=== PATIENT | male | born 1980 | race Caucasian/White ===

== ENCOUNTER 2022-11-04 19:31 | Inpatient (IN) | payer MEDICAID, OTHER ==
[~2022-11-04] VITALS: Ht 182.9 cm; Wt 78.5 kg
[2022-11-04] MEDS ORDERED: DiphenhydrAMINE HCL 50 MG/ML VIAL IM ONE (21:15)
[2022-11-04] MEDS ORDERED: HALOPERIDOL LACTATE 5 MG/ML VIAL IM ONE (21:15)
[2022-11-04] MEDS ORDERED: LORazepam 2 MG/ML VIAL IM ONE (21:15)
[2022-11-04] MEDS ORDERED: HALOPERIDOL 5 MG TABLET PO PRN (21:30)
[2022-11-04 21:49] LABS: BASOPHILS % (AUTO) 0.1 % (0.0-2.0); EOSINOPHILS % (AUTO) 0 % (1.0-6.0); HEMOGLOBIN 13.6 g/dL (13.5-17.5); LYMPHOCYTES # (AUTO) 0.8 K/uL (1.0-4.8); LYMPHOCYTES % (AUTO) 9.1 % (22.0-44.0); MEAN CORPUSCULAR HEMOGLOBIN 27.3 pg (26.0-34.0); MEAN CORPUSCULAR HGB CONC 33.1 G/dL (31.0-37.0); MEAN CORPUSCULAR VOLUME 82 fL (80-100); MONOCYTES # (AUTO) 0.3 K/uL (0.1-1.0); MONOCYTES % (AUTO) 3.7 % (2.0-9.0); NEUTROPHILS # (AUTO) 7.3 K/uL (1.8-7.7); PLATELET COUNT (AUTO) 171 K/uL (150-450); RED BLOOD CELL COUNT(AUTO) 4.98 MIL/uL (4.50-5.90); RED CELL DISTRIBUTION WIDTH 13.3 % (11.5-14.5)
[2022-11-04 21:50] LABS: NEUTROPHILS % (AUTO) 87.1 % (40.0-70.0)
[2022-11-04 21:51] LABS: COVID AG,FIA SOURCE NASOPHARYNGEAL
[2022-11-04 21:57] LABS: ANION GAP 8 mmol/L (8-16); CALCIUM, TOTAL 9.7 mg/dL (8.8-10.5); CARBON DIOXIDE 27 mmol/L (22-29); CHLORIDE 102 mmol/L (98-107); CREATININE 0.79 mg/dL (0.60-1.30); GLOMERULAR FILTR. RATE CALC > 60 mL/min (>60); GLUCOSE,RANDOM 119 mg/dL (70-110); POTASSIUM 3.9 mmol/L (3.5-5.1); SODIUM SERUM 137 mmol/L (136-145); UREA NITROGEN, BLOOD 15 mg/dL (7-18)
[2022-11-04 22:02] LABS: ALANINE AMINOTRANSFERASE 29 U/L (12-78); ALBUMIN 4.3 g/dL (3.4-5.0); ALKALINE PHOSPHATASE 55 U/L (46-116); ASPARTATE AMINOTRANSFERASE 23 U/L (15-37); BILIRUBIN,TOTAL 0.4 mg/dL (0.1-1.0); TOTAL PROTEIN, SERUM 7.8 g/dL (6.4-8.2)
[2022-11-04 23:34] LABS: APPEARANCE,URINE CLEAR (CLEAR); BILIRUBIN,URINE NEGATIVE (NEGATIVE); GLUCOSE, URINE (UA) NEGATIVE (NEGATIVE); KETONES,URINE NEGATIVE (NEGATIVE); LEUKOCYTE ESTERASE ,URINE NEGATIVE (NEGATIVE); NITRATE,URINE NEGATIVE (NEGATIVE); OCCULT BLOOD,URINE NEGATIVE (NEGATIVE); PH,URINE 6.5 (5.0-8.0); PROTEIN,URINE NEGATIVE (NEGATIVE); SPECIFIC GRAVITIY, URINE 1.011 (1.003-1.030); UROBILINOGEN,URINE <=1.0 mg/dL (<=1.0)
[2022-11-04 23:39] LABS: AMPHET/METH SCREEN,URINE POSITIVE (NEGATIVE); BARBITURATE SCREEN, URINE NEGATIVE (NEGATIVE); BENZODIAZEPINES SCREEN,URINE NEGATIVE (NEGATIVE); CANNABINOID SCREEN,URINE POSITIVE (NEGATIVE); COCAINE SCREEN,URINE NEGATIVE (NEGATIVE); METHADONE SCREEN, URINE NEGATIVE (NEGATIVE); OPIATE SCREEN,URINE NEGATIVE (NEGATIVE); PHENCYCLIDINE SCREEN,URINE NEGATIVE (NEGATIVE)
[2022-11-05 00:01] VITALS: BP 132/71
[2022-11-05] MEDS ORDERED: INFLUENZA VIRUS VACCINE QVS 2022-23 (6MO+)/PF 60 MCG/0.5 ML SYRINGE IM. ONE (00:15)
[2022-11-05] MEDS ORDERED: MAG HYDROX/AL HYDROX/SIMETH ES 30 ML SUSPENSION UDCUP PO PRN (01:30)
[2022-11-05] MEDS ORDERED: LOPERAMIDE HCL 2 MG CAPSULE PO PRN (01:30)
[2022-11-05] MEDS ORDERED: ONDANSETRON HCL 4 MG TABLET PO PRN (01:30)
[2022-11-05] MEDS ORDERED: MAGNESIUM HYDROXIDE SUSPENSION 30 ML UDCUP PO PRN (01:30)
[2022-11-05] MEDS ORDERED: CloNIDine HCL 0.1 MG TABLET PO PRN (01:30)
[2022-11-05] MEDS ORDERED: ALBUTEROL SULFATE HFA 90 MCG/PUFF 8 GM INHALER IH PRN (01:30)
[2022-11-05] MEDS ORDERED: ACETAMINOPHEN 325 MG TABLET PO PRN (01:30)
[2022-11-05] MEDS ORDERED: IBUPROFEN 400 MG TABLET PO PRN (01:30)
[2022-11-05] MEDS ORDERED: DOCUSATE SODIUM 100 MG CAPSULE PO PRN (01:30)
[2022-11-05] MEDS ORDERED: GuaiFENesin/D-METHORPHAN [SUGAR-FREE] 200-20MG/10 ML SYRUP UDCUP PO PRN (01:30)
[2022-11-05] MEDS ORDERED: PETROLATUM,WHITE 28 GM JELLY TP PRN (01:30)
[2022-11-05] MEDS ORDERED: NICOTINE 14 MG/24 HOUR PATCH TD PRN (01:30)
[2022-11-05 09:05] VITALS: BP 146/92
[2022-11-05 09:07] LABS: ANION GAP 7 mmol/L (8-16); CALCIUM, TOTAL 9.6 mg/dL (8.8-10.5); CARBON DIOXIDE 28 mmol/L (22-29); CHLORIDE 104 mmol/L (98-107); GLOMERULAR FILTR. RATE CALC > 60 mL/min (>60); GLUCOSE,RANDOM 123 mg/dL (70-110); POTASSIUM 3.9 mmol/L (3.5-5.1); SODIUM SERUM 139 mmol/L (136-145); UREA NITROGEN, BLOOD 14 mg/dL (7-18)
[2022-11-05] MEDS: LORazepam 2 MG TABLET PO PRN (11:51)
[2022-11-05] MEDS: OLANZapine 5 MG RAPDIS TABLET PO SCH ×2 (11:51→20:47)
[2022-11-05 20:30] VITALS: BP 139/91
[2022-11-05] MEDS: ZOLPIDEM TARTRATE 10 MG TABLET PO PRN (20:47)
[2022-11-06 08:00] VITALS: BP 143/91
[2022-11-06] MEDS: OLANZapine 5 MG RAPDIS TABLET PO SCH ×2 (09:22→20:17)
[2022-11-06 11:04] LABS: BASOPHILS % (AUTO) 0.1 % (0.0-2.0); EOSINOPHILS % (AUTO) 0.1 % (1.0-6.0); HEMATOCRIT 43.9 % (41-53); HEMOGLOBIN 14.7 g/dL (13.5-17.5); LYMPHOCYTES % (AUTO) 8.5 % (22.0-44.0); MEAN CORPUSCULAR HEMOGLOBIN 27.2 pg (26.0-34.0); MEAN CORPUSCULAR HGB CONC 33.4 G/dL (31.0-37.0); MEAN CORPUSCULAR VOLUME 82 fL (80-100); MONOCYTES # (AUTO) 0.8 K/uL (0.1-1.0); MONOCYTES % (AUTO) 6.4 % (2.0-9.0); NEUTROPHILS % (AUTO) 84.9 % (40.0-70.0); PLATELET COUNT (AUTO) 194 K/uL (150-450); RED BLOOD CELL COUNT(AUTO) 5.38 MIL/uL (4.50-5.90); RED CELL DISTRIBUTION WIDTH 13.3 % (11.5-14.5)
[2022-11-06 11:23] LABS: HEMOGLOBIN A1C 5.2 % (3.8-5.6)
[2022-11-06 11:59] LABS: ALANINE AMINOTRANSFERASE 26 U/L (12-78); ALKALINE PHOSPHATASE 55 U/L (46-116); ANION GAP 12 mmol/L (8-16); ASPARTATE AMINOTRANSFERASE 18 U/L (15-37); BILIRUBIN,TOTAL 0.3 mg/dL (0.1-1.0); CALCIUM, TOTAL 9.3 mg/dL (8.8-10.5); CARBON DIOXIDE 23 mmol/L (22-29); CHLORIDE 101 mmol/L (98-107); CHOL/HDL RATIO 2.8 (4.2-7.3); CHOLESTEROL 193 mg/dL (131-200); CREATININE 0.86 mg/dL (0.60-1.30); GLOMERULAR FILTR. RATE CALC > 60 mL/min (>60); GLUCOSE,RANDOM 144 mg/dL (70-110); HDL CHOLESTEROL 68 mg/dL (40-60); LDL CHOL (CALC.) 117 mg/dL (0-130); POTASSIUM 3.4 mmol/L (3.5-5.1); SODIUM SERUM 136 mmol/L (136-145); THYROID STIMULATING HORMONE 0.19 uIU/mL (0.36-3.74); TOTAL PROTEIN, SERUM 7.7 g/dL (6.4-8.2); TRIGLYCERIDES 39 mg/dL (15-150); UREA NITROGEN, BLOOD 14 mg/dL (7-18)
[2022-11-06 16:04] VITALS: BP 153/94
[2022-11-06 21:33] VITALS: BP 138/84
[2022-11-07] MEDS: ZOLPIDEM TARTRATE 10 MG TABLET PO PRN ×2 (00:08→20:40)
[2022-11-07] MEDS: OLANZapine 5 MG RAPDIS TABLET PO SCH ×2 (07:53→20:40)
[2022-11-07 08:45] VITALS: BP 138/99
[2022-11-07 16:05] VITALS: BP 145/89
[2022-11-07] MEDS: LORazepam 2 MG TABLET PO PRN (17:10)
[2022-11-07 21:57] VITALS: BP 135/84
[2022-11-08] MEDS: OLANZapine 5 MG RAPDIS TABLET PO SCH ×2 (08:26→20:30)
[2022-11-08 16:03] VITALS: BP 145/87
[2022-11-08] MEDS: ZOLPIDEM TARTRATE 10 MG TABLET PO PRN (20:31)
[2022-11-09 08:11] VITALS: BP 143/93
[2022-11-09] MEDS: OLANZapine 5 MG RAPDIS TABLET PO SCH (10:05)
[2022-11-10] MEDS ORDERED: OLAN5TAB94 PO (04:53)
== END 2022-11-09 12:00 | disposition home or self-care (01) | DRG 750 ==
LOC: EMS 19:35 → 3EC 21:45
PROVIDERS: ADMIT Psychiatry & Neurology Psychiatry; ATTEND Psychiatry & Neurology Psychiatry
DX: F20.9 Schizophrenia, unspecified (principal); F10.10 Alcohol abuse, uncomplicated; G47.00 Insomnia, unspecified; F12.10 Cannabis abuse, uncomplicated; F15.10 Other stimulant abuse, uncomplicated; F11.10 Opioid abuse, uncomplicated; F41.9 Anxiety disorder, unspecified; Z20.822 Contact with and (suspected) exposure to COVID-19; Z79.899 Other long term (current) drug therapy
CPT/HCPCS: 80048; 80053; 80061; 80307; 81003; 83036; 84443; 85025; 86592; 99291; G0480; J1200; J1630; J2060